=== PATIENT | male | born 1950 | race Caucasian/White ===

== ENCOUNTER → 2017-04-26 | Outpatient (CLI) | payer OTHER ==
[~2017-04-26] MED LIST: AVODART0.5 MG PO; FIBER LAX625 MG PO; FIBER500 MG PO; HYDROCODONE-AP1 EAC6 PO; HYTRIN 5 M5 MG/1 CAP PO; IBUPROFEN 600600 M1 PO; LIPITOR 10 MG10 M1 PO; MULTIVITAMINS PO; NORCO 5-325 TA1 EACH PO
== END ==
LOC: MRI 12:13
DX: S83.242A Other tear of medial meniscus, current injury, left knee, initial encounter (principal); S89.92XA Unspecified injury of left lower leg, initial encounter; M25.462 Effusion, left knee; M71.22 Synovial cyst of popliteal space [Baker], left knee; X58.XXXA Exposure to other specified factors, initial encounter; Y93.89 Activity, other specified; Y92.89 Other specified places as the place of occurrence of the external cause; Y99.8 Other external cause status

== ENCOUNTER 2017-06-21 05:24 | Day surgery (SDC) | payer OTHER ==
[~2017-06-21] VITALS: Ht 180.3 cm; Wt 72.6 kg
--- NOTE | ~2017-06-21 | O ---
Formerly [facility] [place] [address] OPERATIVE REPORT Name: NAVEEN PARSON [facility] [id number] Admission: 06/21/17 Attend Phys: Zan Miranda Discharge: 06/21/17 Date of : 46 Report #: [id number] THIS REPORT FOR: //name// CC: CECILE physician/PCP Zan Dodd DATE OF SERVICE: 06/21/2017 PREOPERATIVE DIAGNOSIS: Right lateral clavicle fracture, comminuted with disruption of the coracoclavicular ligaments. POSTOPERATIVE DIAGNOSIS: Right lateral clavicle fracture, comminuted with disruption of the coracoclavicular ligaments. PROCEDURE PERFORMED: Right lateral clavicle open reduction and internal fixation with coracoclavicular ligament repair. SURGEON: Zan Dodd MD CUE WORKER: STEFANIE Rico. ANESTHESIA: General with preoperative interscalene block. FLUIDS: 1000 mL crystalloid. ESTIMATED BLOOD LOSS: Approximately 20 mL. IMPLANTS UTILIZED: Acumed lateral clavicle locking plate with AccuCinch repair system for the coracoclavicular ligament. DESCRIPTION OF PROCEDURE: After proper identification of the patient and operative site in preoperative holding area, the operative site was signed by myself. Prophylactic antibiotics given. The patient elected to receive a block after reviewing the risks, benefits, alternatives and potential complications with anesthesia. After satisfactory block, the patient was brought back to the operative suite. After induction of satisfactory general endotracheal anesthesia, which was performed with a GlideScope, the patient was carefully positioned in the beach chair position with head of bed elevated approximately 40 degrees. The right shoulder was sterilely prepped and draped in the usual manner and final skin draping was with Ioban. A superior incision over the lateral clavicle was planned. Skin was incised sharply. This was dissected down to the periosteal layer and then the clavicle was carefully exposed. Some soft tissue was interposed within the fracture site, which was cleared. The wound was thoroughly irrigated with normal saline. Portion of the periosteum was carefully elevated anteriorly so that the base of the coracoid could be exposed. Through this, the Acumed AccuCinch titanium anchor was then inserted [address] [address] OPERATIVE REPORT Name: NAVEEN PARSON DESI Room #: DEP [place] [facility] [place] Bruce.#: [id number] Admission: 06/21/17 Attend Phys: Zan Miarnda Discharge: 06/21/17 Date of : 46 Report #: [id number] in its predrilled hole, which was done under C-arm guidance. The anchor within the coracoid had excellent purchase. It was centered within this and well seated. Next, the lateral clavicle plate was provisionally secured with a single cortical screw. Its alignment was verified to be in satisfactory position. The fracture could be reduced anatomically. Two additional cortical screws were placed within the more medial aspect of the plate and then a total of 5 locking screws were placed within the distal fragment. Care was taken to ensure that these were extraarticular. The coracoclavicular interspace was reduced with pressure on the clavicle and elbow to reduce this and then the sutures were pulled through a drill hole in the plate. They were threaded through the button and then these were tied. Intraoperative radiographs revealed satisfactory reduction and hardware placement. The clavicle was reduced nicely. The wound was thoroughly irrigated with normal saline. The fascia layer was repaired with #1 Vicryl, 2-0 Vicryl in the subcutaneous tissues, final skin closure with a running Monocryl stitch in a subcuticular manner. This was sealed with Dermabond. Sterile dressing was applied as well as a sling and abduction pillow. Qualified first helper utilized throughout the entire procedure to aid in patient limb positioning, visualization and retraction of the soft tissues, instrument passage closure and sling and dressing application. <ELECTRONICALLY SIGNED> By: Zan Dodd MD 07/12/17 1014 1147 1213 Zan Dodd MD /nt
[2017-06-21 10:09] VITALS: BP 130/70
[2017-06-21 11:32] VITALS: BP 130/70
== END 2017-06-21 12:23 | disposition home or self-care (01) ==
LOC: TBA 05:24 → OR 05:24
DX: S42.031A Displaced fracture of lateral end of right clavicle, initial encounter for closed fracture (principal); S43.81XA Sprain of other specified parts of right shoulder girdle, initial encounter; E78.5 Hyperlipidemia, unspecified; N40.0 Benign prostatic hyperplasia without lower urinary tract symptoms; M19.90 Unspecified osteoarthritis, unspecified site; Z98.890 Other specified postprocedural states; Z79.891 Long term (current) use of opiate analgesic; X58.XXXA Exposure to other specified factors, initial encounter; Y93.89 Activity, other specified; Y92.89 Other specified places as the place of occurrence of the external cause; Y99.8 Other external cause status
CPT/HCPCS: 50010; 50101; 50386; 50417; 50733; 55430; 56521; 56525; 56526; 62110; 62900; 64031; 70005

== ENCOUNTER → 2019-11-10 | Outpatient (CLI) | payer OTHER | LOC: SJCVC 14:25 | PROVIDERS: ATTEND Internal Medicine | DX: I45.2 Bifascicular block (principal); R94.31 Abnormal electrocardiogram [ECG] [EKG]; I34.1 Nonrheumatic mitral (valve) prolapse; I34.0 Nonrheumatic mitral (valve) insufficiency; I10 Essential (primary) hypertension; E78.5 Hyperlipidemia, unspecified; Z82.49 Family history of ischemic heart disease and other diseases of the circulatory system; Z79.899 Other long term (current) drug therapy ==

== ENCOUNTER → 2019-12-08 | Outpatient (CLI) | payer OTHER | LOC: SJCVCIMAG 07:49 | PROVIDERS: ATTEND Internal Medicine | DX: I08.8 Other rheumatic multiple valve diseases (principal); I45.10 Unspecified right bundle-branch block; I10 Essential (primary) hypertension ==

== ENCOUNTER → 2020-06-14 | Outpatient (CLI) | payer OTHER | LOC: SJCVC 14:01 | PROVIDERS: ATTEND Internal Medicine | DX: R94.31 Abnormal electrocardiogram [ECG] [EKG] (principal); I45.2 Bifascicular block; I34.1 Nonrheumatic mitral (valve) prolapse; I34.0 Nonrheumatic mitral (valve) insufficiency; I10 Essential (primary) hypertension; E78.5 Hyperlipidemia, unspecified; Z86.16 Personal history of COVID-19; Z72.89 Other problems related to lifestyle; Z79.899 Other long term (current) drug therapy ==

== ENCOUNTER → 2020-12-22 | Outpatient (CLI) | payer OTHER | LOC: SJCVCIMAG 12-07 10:28 → SJCVCINTER 12-07 10:28 → SJCVCIMAG 12-07 11:55 → SJCVCINTER 12-07 12:03 → SJCVCIMAG 12-07 13:41 → SJCVCINTER 12-07 14:07 → SJCVCIMAG 07:27 | PROVIDERS: ATTEND Internal Medicine | DX: I49.3 Ventricular premature depolarization (principal); I45.10 Unspecified right bundle-branch block; I08.3 Combined rheumatic disorders of mitral, aortic and tricuspid valves; R94.31 Abnormal electrocardiogram [ECG] [EKG]; I34.1 Nonrheumatic mitral (valve) prolapse; I34.0 Nonrheumatic mitral (valve) insufficiency; I10 Essential (primary) hypertension; I45.2 Bifascicular block; E78.5 Hyperlipidemia, unspecified; Z86.16 Personal history of COVID-19; Z72.89 Other problems related to lifestyle; Z79.899 Other long term (current) drug therapy ==

== ENCOUNTER → 2021-05-01 | Outpatient (CLI) | payer OTHER | LOC: SJCVC 10:50 | PROVIDERS: ATTEND Internal Medicine | DX: R94.31 Abnormal electrocardiogram [ECG] [EKG] (principal); I49.3 Ventricular premature depolarization; I45.2 Bifascicular block; I34.0 Nonrheumatic mitral (valve) insufficiency; I34.1 Nonrheumatic mitral (valve) prolapse; I10 Essential (primary) hypertension; E78.5 Hyperlipidemia, unspecified; Z86.16 Personal history of COVID-19; Z72.89 Other problems related to lifestyle; Z79.899 Other long term (current) drug therapy ==

== ENCOUNTER → 2021-05-09 | Outpatient (CLI) | payer OTHER ==
[~2021-05-09] VITALS: Ht 182.9 cm; Wt 74.8 kg
[~2021-05-09] MED LIST changes: +COZAAR 25 MG TA25 M2 PO; +COZAAR 50 MG TA50 MG PO; +LIPITOR40 MG PO; +NABUMETONE 500500 M2 PO; +XARELTO15 MG PO; +XARELTO20 MG PO
[2021-05-09 07:32] VITALS: BP 147/81
--- NOTE | 2021-05-09 09:29 | TEE ---
[facility] [place] [address] TRANSESOPHAGEAL ECHOCARDIOGRAM Name: NAVEEN PARSON Room #: REG [facility]#: [id number] Admission: 05/09/21 Attend Phys: Varinder Huang MD, Discharge: Date of : 46 Report #: [id number] THIS REPORT FOR: cc: Kingston Lo MD, Steven A. MD Lundgren,Varinder Kohler MD [facility] ~ APPROVED REPORT Study performed: 05/09/2021 07:46:12 EXAM: Transesophageal Echocardiogram Patient Location: Out-Patient Status: routine BSA: 1.93 HR: 59 bpm BP: 147/81 mmHg Rhythm: BBB, PVCS Other Information Study Quality: Good Indications Mitral Valve Prolapse Mitral regurgitation Procedure After obtaining informed consent, patient underwent transesophageal echo in the [employer]. Type of Sedation : Conscious Sedation Sedation was administered by Carolyn Howell RN. Sedation start time: 802 Case end Time: 813 Sedation was achieved intravenously with: Versed (4) Fentanyl (75) Transesophageal probe was inserted and advanced into esophagus without difficulty by Varinder Huang MD. Echo enhancement indication: R/O Septal defect. Echo enhancement agent administered: Agitated Saline The SUSAN was performed without complications. Throughout the procedure, the blood pressure, pulse oximetry, cardiac rhythm, and rate were monitored. The patient tolerated the procedure without adverse effects. Recovery from conscious sedation was uneventful and vital signs were stable. [facility] [address] [place] [address] TRANSESOPHAGEAL ECHOCARDIOGRAM Name: NAVEEN PARSON Room #: [facility]#: [id number] Admission: 05/09/21 Attend Phys: Varinder Huang, Discharge: Date of : 46 Report #: [id number] Left Ventricle The left ventricle is normal size. There is normal LV segmental wall motion. There is normal left ventricular wall thickness. Left ventricular systolic function is normal. LVEF is 60%. Right Ventricle The right ventricle is normal size. The right ventricular systolic function is normal. Atria No thrombus is visualized in the left atrium or appendage. No shunting by contrast bubble injection Aortic Valve The aortic valve is normal in structure. Mild aortic regurgitation. There is no aortic valvular stenosis. Mitral Valve Posterior mitral leaflet prolapse with severe, eccentric mitral insufficiency. No evidence of mitral valve stenosis. Tricuspid Valve The tricuspid valve is normal in structure. Mild tricuspid regurgitation. Pulmonic Valve The pulmonary valve is normal in structure. Trace pulmonic regurgitation. Great Vessels The aortic root is normal in size. The ascending aorta is normal in size. IVC is normal in size and collapses >50% with inspiration. Pericardium There is no pericardial effusion. <Conclusion> Left ventricular systolic function is normal. There is normal LV segmental wall motion. LVEF is 60%. No thrombus is visualized in the left atrium or appendage. No shunting by contrast bubble injection The aortic valve is normal in structure, trileaflet. Mild aortic regurgitation, no stenosis. Posterior mitral leaflet prolapse with severe, eccentric mitral [facility] [address] [address] TRANSESOPHAGEAL ECHOCARDIOGRAM Name: NAVEEN PARSON DESI Room #: [facility]#: [id number] Admission: 05/09/21 Attend Phys: Varinder Huang, Discharge: Date of : 46 Report #: [id number] insufficiency. The ascending aorta is normal in size. No pericardial effusion. <ELECTRONICALLY SIGNED> By: Varinder Huang MD, [facility] 05/09/21928 8 8 Varinder Huang MD, FACC /INF
--- NOTE | 2021-05-17 09:01 | CATHLAB ---
[facility] [place] [address] [address] INVASIVE PROCEDURE REPORT Name: NAVEEN PARSON Room #: REG [facility].#: [id number] Admission: 05/09/21 Attend Phys: Varinder Huang MD, Discharge: Date of : 46 Report #: [id number] THIS REPORT FOR: cc: Kingston Lo MD, Steven A. MD Lundgren, Craig H. MD [facility] ~ APPROVED REPORT Study performed: 05/09/2021 08:22:37 Patient Details Patient Status: Out-Patient Room #: The patient is a 71 year-old male Event Personnel Varinder Huang Patient Support Assistant, Shanika Leach RTR Monitor, Rox Dooley RTR, Dante Queen Sarah RN associate designer Performed Art Access - R femoral artery* Left Heart Cath w/or w/o Coronaries [id number] [facility] Hemostasis w/ Mynx 58244 Initial Mod Sed Same Phys/QHP Gr5y 120004 16359 Mod Sed Same Phys/QHP Ea [id number] Procedure Narrative The patient was brought electively to the Cardiac Catheterization Laboratory and was prepped and draped in a sterile manner. The Right Groin^ was infiltrated with 1% Lidocaine subcutaneous anesthesia. A PINNACLE 6FR Sheath #[id number] sheath was inserted into the RFA^. Coronary angiography was performed using coronary diagnostic catheters. The right coronary system was accessed and visualized with a JR4 catheter. The left coronary system was accessed and visualized with a JL4 catheter. The left ventricle was accessed and visualized with a ANGLED PIGTAIL catheter. Left ventriculogram was performed in 30 degree projection. Closure device was deployed with a Fr MYNXGRIP 6/7F #[id number]. The patient tolerated the procedure well and there were no complications associated with the procedure. There was no hematoma. Intraoperative Conscious Sedation Sedation start time: 8:27 Case end Time: 8:59 Fentanyl 25 mcg Versed [address] [address] INVASIVE PROCEDURE REPORT Name: BLANKNAVEEN DESI Room #: REG [facility]#: [id number] Admission: 05/09/21 Attend Phys: Varinder Huang, Discharge: Date of : 46 Report #: [id number] Fluoro Time: 2.70 minutes Dose: DAP 5848.60 cGycm2 812 mGy Contrast Type and Amount: Omnipaque 155 ml Coronary Angiography The patient's coronary anatomy is right dominant. 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 The left ventricular ejection fraction is estimated to be 55-60%. Left ventricular wall motion abnormalities are not present. There is severe mitral insufficiency. Hemodynamics The aortic pressure is 103/44 mmHg with a mean of 81 mmHg. The left ventricular pressure is 156/5 mmHg with a mean of mmHg. The left ventricular end diastolic pressure is 20 mmHg. Conclusion 1. Normal left ventricular systolic function with severe mitral insufficiency. EF 60% 2. Normal left main 3. Normal LAD with mid LAD spasm, component of mid LAD myocardial bridging 4. Normal codominant circumflex 5. Mild proximal right coronary plaquing. 40-50% distal right coronary stenosis [facility] [address] [place] [address] INVASIVE PROCEDURE REPORT Name: NAVEEN PARSON Room #: REG [facility]#: [id number] Admission: 05/09/21 Attend Phys: Varinder Huang, Discharge: Date of : 46 Report #: [id number] Recommendations Valve Surgery <ELECTRONICALLY SIGNED> By: Varinder Huang MD, FACC 05/17/2100 9 9 Varinder Huang MD, FACC /INF
== END | disposition home or self-care (01) ==
LOC: CATH 06:22
PROVIDERS: ATTEND Internal Medicine
DX: I25.10 Atherosclerotic heart disease of native coronary artery without angina pectoris (principal); I08.3 Combined rheumatic disorders of mitral, aortic and tricuspid valves; I10 Essential (primary) hypertension; E78.5 Hyperlipidemia, unspecified; Z98.890 Other specified postprocedural states; Z79.899 Other long term (current) drug therapy; Z82.49 Family history of ischemic heart disease and other diseases of the circulatory system

== ENCOUNTER 2021-05-15 16:59 | Inpatient (IN) | payer OTHER ==
[~2021-05-15] VITALS: Ht 180.3 cm; Wt 75.4 kg
[~2021-05-15 16:59] MED LIST changes: -COZAAR 50 MG TA50 MG PO; -LIPITOR40 MG PO; -XARELTO15 MG PO; -XARELTO20 MG PO
[2021-05-15 17:01] VITALS: BP 137/55
[2021-05-15 17:57] LABS: ABSOLUTE NEUTROPHILS 4.4 thou/uL (1.4-8.2); BASOPHILS 0.4 % (0.0-2.0); EOSINOPHILS 2.5 % (0.0-3.0); HEMATOCRIT 37.3 % (42.0-52.0); HEMOGLOBIN 12.5 gm/dL (14.0-18.0); LYMPHOCYTES 25.4 % (24.0-44.0); MCH 31.1 pg (26.0-34.0); MCHC 33.4 g/dL (28.0-37.0); MCV 93.1 fL (80.0-100.0); MONOCYTES 12.7 % (1.0-8.0); PLATELET COUNT 204 thou/uL (150-400); RBC 4.01 mil/uL (4.50-6.00); RDW 13.2 % (10.5-14.5); WBC 7.4 thou/uL (4.0-11.0)
[2021-05-15 19:19] VITALS: BP 123/68; BP 137/55
[2021-05-15 19:35] VITALS: BP 114/77
--- NOTE | 2021-05-16 04:14 | NUR ---
ADMITTED PATIENT AT 1935H.PATIENT IS ALERT AND ORIENTED X4.ON ROOM AIR BREATHING SPONTANEOUSLY.ADMISSION HISTORY AND ASSESSMENT DONE.MEDS GIVEN PER JUN.TO CONTINOUSLY MONITOR.
[2021-05-16 04:48] VITALS: BP 126/77
[2021-05-16 09:32] VITALS: BP 135/61
--- NOTE | 2021-05-16 11:24 | NUR ---
PATIENT ADMITTED FOR PSEUDOANEURSYM. CHART REVIEWED AND DISCUSSED WITH CARE TEAM. CM MET WITH PT THIS DAY. PTS AT BEDSIDE. CM ROLE INTRODUCED. PT LIVES AT HOME WITH SPOUSE. HE IS INDEPENDENT WITH ADLS AND MOBILITY. HE REPORTS HAS NOT USED HH/SNF IN THE PAST. [place] AND PT REPORTS NO CONCERNS WITH DISCHARGE HOME ONCE MEDICALLY STABLE. NO CM INTERVENTIONS AT THIS TIME.
--- NOTE | 2021-05-16 11:31 | NUR ---
CALLED AND TALKED TO THE [employer] SUPERVISOR AND PATIENT IS A MEDICAL/SURG PATIENT AND DOSE NOT NEED TO BE ON TEL PACK. TEL PACK WAS REMOVED
[2021-05-16] MEDS ORDERED: XARELTO20 MG PO ×2 (12:19)
[2021-05-16 16:58] VITALS: BP 123/77
[2021-05-16 17:52] LABS: HEMATOCRIT 39.9 % (42.0-52.0); MCH 30.4 pg (26.0-34.0); MCHC 32.5 g/dL (28.0-37.0); MCV 93.7 fL (80.0-100.0); RBC 4.26 mil/uL (4.50-6.00); RDW 13.1 % (10.5-14.5); WBC 6.9 thou/uL (4.0-11.0)
[2021-05-16 18:06] LABS: APTT 26.8 Seconds (24.5-32.8); INR 1.01
--- NOTE | 2021-05-16 19:13 | NUR ---
TALKED TO DOCTOR ABOUT MEDICATION AND NEW ORDERS GIVEN AND DONE. PATIENT IS UP WALKING IN ROOM OR SITTING IN CHAIR WITH CALL FRANCISCO IN REACH.
[2021-05-16 19:25] VITALS: BP 115/55
--- NOTE | 2021-05-17 03:48 | NUR ---
PATIENT AAOX4. RESTING IN RECLINER AT BEDSIDE. PT STATES THAT HE HOPES TO D/C IN THE AM. AT THIS TIME PT IS ON A HEPARIN DRIP. NOTED EDEMA TO THE RLE WHICH IS THE LEG WHERE HIS CLOT WAS IDENTIFIED. DENIES PAIN AT THIS TIME. VSS. PT IS ABLE TO AMBULATE WITHOUT ASSISTANCE.
[2021-05-17 05:16] VITALS: BP 117/60
[2021-05-17 08:00] VITALS: BP 105/63
[2021-05-17] MEDS ORDERED: XARELTO15 MG PO ×2 (08:14)
[2021-05-17] MEDS ORDERED: LIPITOR40 MG PO ×2 (08:14)
[2021-05-17] MEDS ORDERED: COZAAR 50 MG TA50 MG PO ×2 (08:14)
[2021-05-17 10:51] VITALS: BP 105/63
--- NOTE | 2021-05-17 10:54 | NUR ---
ASSUMED PT CARE THIS MORNING. PT A/OX4 AND COMMUNICATING NEEDS APPROPRIATELY. PT DENIES PAIN. AMBULATING IN THE ROOM AND VOIDING WITHOUT ISSUE. TELE AND IV WERE DISCONTINUED. DC INSTRUCTIONS WERE REVIEWED WITH THE PT AND QUESTIONS INVITED. PT WAS SENT HOME WITH THEIR PERSONAL BELONGINGS TO THE CARE OF FAMILY.
--- NOTE | 2021-05-23 07:59 | H ---
[facility] [place] [address] HISTORY AND PHYSICAL Name: NAVEEN PARSON Room #: 212-P [facility] M.R.#: [id number] Admission: 05/15/21 Attend Phys: Varinder Huang MD, Discharge: 05/17/21 Date of : 46 Report #: [id number] THIS REPORT FOR: cc: Kingston Lo MD, Steven A. MD Lundgren,Varinder Kohler MD [facility] ~ DATE OF SERVICE: 05/15/2021 REASON FOR ADMISSION: Right groin pain. 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 In anticipation of minimally invasive mitral valve repair at the [facility], he underwent coronary angiography on 05/09/2021. This demonstrated normal left ventricular systolic function with severe mitral insufficiency. There is mild to modest plaquing in the distal right coronary. Medical therapy was recommended. Arrangements were made for referral to the [facility]. He called with complaints of right groin pain and swelling. An outpatient Doppler demonstrated a right groin pseudoaneurysm. There was also a lack of compressibility of the common femoral vein, suggesting thrombus. He is now admitted for further evaluation, anticipated to be pseudoaneurysm thrombin injection. He denies chest heaviness or pressure. He has been bothered by exertional breathlessness that has been longstanding and been attributed to his mitral valve disease. No orthopnea, paroxysmal nocturnal dyspnea, or lower extremity edema. No history of palpitations, near syncope, or syncope. ALLERGIES: There are no known drug allergies. MEDICATIONS: Include atorvastatin 20 mg daily, losartan 50 mg daily, and Relafen as needed. PAST MEDICAL AND SURGICAL HISTORY: His past history and medical records have been reviewed and include a history of dyslipidemia, right bundle-branch block, right shoulder surgery in 2018. SOCIAL HISTORY: He has never been a smoker, is an occasional beer drinker, . FAMILY HISTORY: Notable for father who had aortic stenosis. REVIEW OF SYSTEMS: All systems negative except as that noted above. PHYSICAL EXAMINATION: GENERAL: This is a pleasant gentleman in no distress. VITAL SIGNS: Blood pressure is 146/70, heart rate is 60 and regular. 5 feet 11 [facility] [address] [place] [address] HISTORY AND PHYSICAL Name: NAVEEN PARSON DESI Room #: 212-P [facility] M.R.#: [id number] Admission: 05/15/21 Attend Phys: Varinder Huang MD, Discharge: 05/17/21 Date of : 46 Report #: [id number] inches tall. There are neither xanthelasma, subcutaneous xanthomata, oral mucosal, digital cyanosis or kyphoscoliosis present. CHEST: Clear to auscultation and percussion. CARDIAC: Regular rate and rhythm with normal S1, S2. There is a 3-4/6 holosystolic murmur at the left sternal border. ABDOMEN: Soft, nontender. The right groin is with a small hematoma with bruit. EXTREMITIES: Ecchymoses in the medial thigh. Distal pulses are symmetric. NEUROLOGIC: He is alert with a nonfocal exam. IMPRESSION: 1. Mitral valve prolapse. 2. Severe non-rheumatic mitral regurgitation. 3. 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 4. Right bundle-branch block. 5. Dyslipidemia. RECOMMENDATIONS: 1. IR consultation for thrombin injection. 2. Reimaging of the venous system to exclude clot, if present. Anticoagulant therapy will be needed following thrombin injection. 3. Continued efforts towards aggressive risk factor modification including statin use. Further thoughts and plans will be forthcoming based on full completion of the database and based on his clinical course. <ELECTRONICALLY SIGNED> By: Varinder Huang MD, FACC 05/23/21 0759 1606 1621 Varinder Huang MD, FACC /nt
== END 2021-05-17 12:02 | disposition home or self-care (01) | DRG 300 ==
LOC: ER 16:59 → 2N 18:26 → EROBS 18:26 → 2N 19:21
PROVIDERS: ADMIT Internal Medicine; ATTEND Internal Medicine
PROC: B41F1ZZ Fluoroscopy of Right Lower Extremity Arteries using Low Osmolar Contrast (ICD-10-PCS; principal; 2021-05-16)
PROC: 3E053GC Introduction of Other Therapeutic Substance into Peripheral Artery, Percutaneous Approach (ICD-10-PCS; principal; 2021-05-16)
DX: I72.8 Aneurysm of other specified arteries (principal); I82.421 Acute embolism and thrombosis of right iliac vein; E78.5 Hyperlipidemia, unspecified; I10 Essential (primary) hypertension; I34.0 Nonrheumatic mitral (valve) insufficiency; Z20.822 Contact with and (suspected) exposure to COVID-19; I34.1 Nonrheumatic mitral (valve) prolapse; I45.10 Unspecified right bundle-branch block; Z79.899 Other long term (current) drug therapy
CPT/HCPCS: 10081; 10194

== ENCOUNTER → 2021-05-15 | Outpatient (CLI) | payer OTHER | LOC: SJCVCIMAG 15:28 | PROVIDERS: ATTEND Internal Medicine | DX: I72.9 Aneurysm of unspecified site (principal) ==

== ENCOUNTER → 2021-05-25 | Outpatient (CLI) | payer OTHER ==
[~2021-05-25] MED LIST changes: +COZAAR 50 MG TA50 MG PO; +LIPITOR40 MG PO; +XARELTO15 MG PO; +XARELTO20 MG PO
== END ==
LOC: SJCVC 10:37
PROVIDERS: ATTEND Internal Medicine
DX: I34.1 Nonrheumatic mitral (valve) prolapse (principal); I45.10 Unspecified right bundle-branch block; I25.10 Atherosclerotic heart disease of native coronary artery without angina pectoris; I10 Essential (primary) hypertension; E78.5 Hyperlipidemia, unspecified; I82.411 Acute embolism and thrombosis of right femoral vein; Z72.89 Other problems related to lifestyle; Z79.899 Other long term (current) drug therapy